=== PATIENT | female | born 1995 | race Asian ===

== ENCOUNTER 2020-08-14 10:10 | Inpatient (IN) | payer MEDICAID ==
[~2020-08-14] VITALS: Ht 124.5 cm; Wt 38.5 kg
[2020-08-14 11:13] LABS: Basophils % (auto) 0.2 % (0.0-2.0); Eosinophils # (auto) 0 10 ^3/uL (0-0.8); White Blood Cell 20.2 10^3/uL (4.4-10.8)
[2020-08-14 11:14] LABS: Basophils # (auto) 0 10 ^3/uL (0-0.2); Hematocrit 54.2 % (36.0-46.0); Hemoglobin 18.8 g/dL (12.2-16.2); Lymphocytes # (auto) 0.8 10 ^3/uL (0.4-5.4); Lymphocytes % (auto) 3.8 % (10.0-50.0); Mean Corpuscular Hemoglobin 29.1 pg (28.0-32.0); Mean Corpuscular Hgb Conc. 34.6 g/dL (32.0-36.0); Monocytes # (auto) 1.6 10 ^3/uL (0-1.3); Monocytes % (auto) 7.7 % (0.0-12.0); Neutrophils # (auto) 17.9 10 ^3/uL (1.6-8.6); Neutrophils % (auto) 88.3 % (37.0-80.0); Nucleated Red Blood Cells % 0.2 %; Platelet Count (auto) 388 10^3/uL (140-450); Red Blood Cells 6.44 10^6/uL (4.0-5.20)
[2020-08-14 11:28] LABS: Albumin 5.8 g/dL (3.4-5.0); Calcium 9.9 mg/dL (8.5-10.1)
[2020-08-14 11:31] LABS: BUN/Creatinine Ratio 38.7
[2020-08-14 11:33] LABS: Bilirubin, Total 1.2 mg/dL (0.2-1.0); Total Protein 10.5 g/dL (6.4-8.2)
[2020-08-14 11:55] LABS: Potassium 2.7 mmol/L (3.5-5.1)
[2020-08-14] MEDS ORDERED: SODIUM CHLORIDE 0.9% 1,000 ML IVB ONE (12:15)
[2020-08-14] MEDS ORDERED: SODIUM CHLORIDE 0.9% 1,000 ML IV ONE ×3 (12:15→18:30)
[2020-08-14 12:47] LABS: INR 1.03 (0.9-1.15)
[2020-08-14 12:51] LABS: Magnesium 3.3 mg/dL (1.6-2.6)
[2020-08-14] MEDS: PROMETHAZINE HCL 25 MG/ML 1ML IV PRN ×2 (14:08→22:17)
[2020-08-14] MEDS ORDERED: cefTRIAXone 1GM/50ML D5W 50 ML IV ONE (14:15)
[2020-08-14] MEDS: POTASSIUM CHL 20MEQ/100ML 100 ML IV SCH ×5 (14:15→22:45)
[2020-08-14 15:13] LABS: Lactic Acid w/Reflex 3.9 mmol/L (0.4-2.0)
[2020-08-14] MEDS ORDERED: NITROGLYCERIN 0.4 MG SL TAB SL PRN (17:15)
[2020-08-14] MEDS ORDERED: MORPHINE SULF INJ 2 MG/ML SYRINGE 1ML IV PRN ×2 (17:15→18:00)
[2020-08-14] MEDS: cefTRIAXone 1GM/50ML D5W 50 ML IV SCH (17:30)
[2020-08-14] MEDS: ENOXAPARIN SOD 40 MG/0.4 ML SYRINGE SC SCH (17:39)
[2020-08-14] MEDS: AZITHROMYCIN 500MG/ 250ML 250 ML IV SCH (18:33)
[2020-08-15] MEDS: metroNIDAZOLE 500MG/100ML 100 ML IV SCH ×2 (00:58→05:46)
[2020-08-15] MEDS: PROMETHAZINE HCL 25 MG/ML 1ML IV PRN (05:29)
[2020-08-15 06:29] LABS: Basophils # (auto) 0 10 ^3/uL (0-0.2); Basophils % (auto) 0.1 % (0.0-2.0); Eosinophils # (auto) 0 10 ^3/uL (0-0.8); Hematocrit 43.5 % (36.0-46.0); Hemoglobin 14.4 g/dL (12.2-16.2); Lymphocytes # (auto) 1.5 10 ^3/uL (0.4-5.4); Lymphocytes % (auto) 12.1 % (10.0-50.0); Mean Corpuscular Hemoglobin 28.5 pg (28.0-32.0); Mean Corpuscular Hgb Conc. 33.1 g/dL (32.0-36.0); Mean Corpuscular Volume 86.3 fL (80.0-100.0); Monocytes # (auto) 0.9 10 ^3/uL (0-1.3); Monocytes % (auto) 7.4 % (0.0-12.0); Neutrophils # (auto) 10.2 10 ^3/uL (1.6-8.6); Neutrophils % (auto) 80.4 % (37.0-80.0); Platelet Count (auto) 257 10^3/uL (140-450); Red Blood Cells 5.04 10^6/uL (4.0-5.20); White Blood Cell 12.7 10^3/uL (4.4-10.8)
[2020-08-15 07:06] LABS: Albumin 3.7 g/dL (3.4-5.0); BUN/Creatinine Ratio 28.4; Bilirubin, Total 1.5 mg/dL (0.2-1.0); Calcium 7.8 mg/dL (8.5-10.1); Total Protein 7.2 g/dL (6.4-8.2)
[2020-08-15 07:09] LABS: Potassium 2.7 mmol/L (3.5-5.1)
[2020-08-15] MEDS: POTASSIUM CHL 20MEQ/100ML 100 ML IV SCH ×4 (08:36→17:57)
[2020-08-15] MEDS: cefTRIAXone 1GM/50ML D5W 50 ML IV SCH (09:33)
[2020-08-15] MEDS: SOD CHL 0.9%/ KCL 20MEQ 1,000 ML IV SCH ×4 (10:00→21:59)
[2020-08-15] MEDS: ENOXAPARIN SOD 40 MG/0.4 ML SYRINGE SC SCH (10:30)
[2020-08-15] MEDS: AZITHROMYCIN 500MG/ 250ML 250 ML IV SCH (10:59)
[2020-08-15] MEDS: ONDANSETRON HCL 4 MG/2 ML VIAL IV PRN ×2 (11:47→20:06)
[2020-08-15] MEDS: ACETAMINOPHEN 325 MG TAB PO PRN (11:54)
[2020-08-15] MEDS: PANTOPRAZOLE 40 MG/10 ML VIAL INJ IV SCH ×2 (13:00→21:35)
[2020-08-15] MEDS ORDERED: POTASSIUM CHL 20MEQ/100ML 100 ML IV ONE (17:51)
[2020-08-16] MEDS: PROMETHAZINE HCL 25 MG/ML 1ML IV PRN ×3 (00:53→20:13)
[2020-08-16 06:28] LABS: Urine Bacteria MANY /hpf (None Seen); Urine Blood 3+ /uL (Negative); Urine Budding Yeast MODERATE /hpf (None Seen); Urine Mucus FEW (None Seen); Urine Specific Gravity 1.016 (1.001-1.035); Urine WBC 64 /hpf (0 - 5); Urine WBC Clumps PRESENT /hpf (None Seen)
[2020-08-16 06:36] LABS: Sodium Urine 217 mmol/L (40-220)
[2020-08-16 06:38] LABS: Amphetamine Screen, Urine NEGATIVE (NEGATIVE); Barbiturate Scree,Urine NEGATIVE (NEGATIVE); Benzodiazephine Screen, Urine NEGATIVE (NEGATIVE); Cannabinoid Screen, Urine NEGATIVE (NEGATIVE); Cocaine Screen, Urine NEGATIVE (NEGATIVE); Creatinine, Urine 49 mg/dL (30.0-125.0); Opiate Scree,Urine NEGATIVE (NEGATIVE); Phencyclidine Screen, Urine NEGATIVE (NEGATIVE); Protein, Urine 36.7 mg/dL (0.0-11.9)
[2020-08-16] MEDS: SOD CHL 0.9%/ KCL 20MEQ 1,000 ML IV SCH (08:17)
[2020-08-16 09:02] LABS: Potassium 4.3 mmol/L (3.5-5.1)
[2020-08-16] MEDS: ENOXAPARIN SOD 40 MG/0.4 ML SYRINGE SC SCH (10:10)
[2020-08-16] MEDS: cefTRIAXone 1GM/50ML D5W 50 ML IV SCH (10:10)
[2020-08-16] MEDS: PANTOPRAZOLE 40 MG/10 ML VIAL INJ IV SCH ×2 (10:10→22:53)
[2020-08-16 10:12] LABS: Albumin 2.6 g/dL (3.4-5.0); BUN/Creatinine Ratio 17.9; Bilirubin, Total 1.1 mg/dL (0.2-1.0); Calcium 6.2 mg/dL (8.5-10.1); Phosphorus 1.6 mg/dL (2.5-4.90); Total Protein 5.2 g/dL (6.4-8.2)
[2020-08-16] MEDS ORDERED: SOD CHL 0.9%/ KCL 20MEQ 1,000 ML IV SCH (12:15)
[2020-08-16] MEDS: SODIUM CHLORIDE 0.9% 1,000 ML IV SCH ×2 (14:31→20:25)
[2020-08-16 19:45] VITALS: BP 131/77
[2020-08-16] MEDS: ACETAMINOPHEN 325 MG TAB PO PRN (20:14)
[2020-08-16 20:40] VITALS: BP 131/77
[2020-08-17] VITALS: BP 131/78
[2020-08-17] MEDS: SODIUM CHLORIDE 0.9% 1,000 ML IV SCH ×3 (02:51→16:25)
[2020-08-17] MEDS: ONDANSETRON HCL 4 MG/2 ML VIAL IV PRN (04:15)
[2020-08-17 07:40] LABS: Basophils # (auto) 0 10 ^3/uL (0-0.2); Basophils % (auto) 0.3 % (0.0-2.0); Eosinophils # (auto) 0.1 10 ^3/uL (0-0.8); Eosinophils % (auto) 0.9 % (0.0-7.0); Hematocrit 48.1 % (36.0-46.0); Hemoglobin 16.3 g/dL (12.2-16.2); Lymphocytes # (auto) 2.2 10 ^3/uL (0.4-5.4); Lymphocytes % (auto) 25.4 % (10.0-50.0); Mean Corpuscular Hemoglobin 28.6 pg (28.0-32.0); Mean Corpuscular Hgb Conc. 33.9 g/dL (32.0-36.0); Mean Corpuscular Volume 84.4 fL (80.0-100.0); Monocytes # (auto) 0.5 10 ^3/uL (0-1.3); Monocytes % (auto) 6.3 % (0.0-12.0); Neutrophils # (auto) 5.8 10 ^3/uL (1.6-8.6); Neutrophils % (auto) 67.1 % (37.0-80.0); Nucleated Red Blood Cells % 0.1 %; Platelet Count (auto) 263 10^3/uL (140-450); Red Blood Cells 5.69 10^6/uL (4.0-5.20); Red Cell Distribution Width 12.5 % (11.8-14.3); White Blood Cell 8.6 10^3/uL (4.4-10.8)
[2020-08-17 08:00] VITALS: BP_SYST 121; BP_SYST 138; BP_DIAS 78; BP_DIAS 81
[2020-08-17] MEDS ORDERED: diphenhdrAMINE HCL 50 MG/1 ML VL ONE (08:25)
[2020-08-17] MEDS ORDERED: LIDOCAINE VISCOUS 2% 15ML UD ONE (08:25)
[2020-08-17 08:31] LABS: Albumin 4.1 g/dL (3.4-5.0); Calcium 8.7 mg/dL (8.5-10.1); Potassium 3.7 mmol/L (3.5-5.1)
[2020-08-17] MEDS ORDERED: SODIUM CHLORIDE LOCK 10 ML ONE (08:55)
[2020-08-17] MEDS: cefTRIAXone 1GM/50ML D5W 50 ML IV SCH (09:52)
[2020-08-17] MEDS: ENOXAPARIN SOD 40 MG/0.4 ML SYRINGE SC SCH (09:52)
[2020-08-17] MEDS: PANTOPRAZOLE 40 MG/10 ML VIAL INJ IV SCH (09:52)
[2020-08-17] MEDS: MIDAZOLAM HCL 5 MG/ML-1ML VIAL ONE ×2 (10:43→10:46)
[2020-08-17] MEDS: fentaNYL CITRATE 100 MCG/2 ML VL ONE ×2 (10:43→10:46)
[2020-08-17 14:29] VITALS: BP 121/81
[2020-08-17 16:26] VITALS: BP 113/73
== END 2020-08-17 17:00 | disposition home or self-care (01) | DRG 720 ==
LOC: ER 10:10 → TELE 17:20 → TELE-CENTR 08-16 20:40
PROVIDERS: ADMIT Internal Medicine; ATTEND Internal Medicine
PROC: 0DB68ZX Excision of Stomach, Via Natural or Artificial Opening Endoscopic, Diagnostic (ICD-10-PCS; principal; 2020-08-17 10:39)
DX: A41.9 Sepsis, unspecified organism (principal); N17.0 Acute kidney failure with tubular necrosis; R65.20 Severe sepsis without septic shock; E87.6 Hypokalemia; E87.2 Acidosis; E86.0 Dehydration; Z20.828 Contact with and (suspected) exposure to other viral communicable diseases; F17.210 Nicotine dependence, cigarettes, uncomplicated; J45.909 Unspecified asthma, uncomplicated; B37.9 Candidiasis, unspecified; K29.70 Gastritis, unspecified, without bleeding
CPT/HCPCS: 36415; 43239; 71045; 74176; 80053; 80307; 81001; 81025; 82570; 83605; 83690; 83735; 84100; 84156; 84300; 84702; 85025; 85610; 85730; 86850; 86900; 86901; 87040; 87086; 87088; 87426; C9113; G0378; J0696; J2250; J2405; J3480; J3490